=== PATIENT | male | born 1995 | race Caucasian/White ===

== ENCOUNTER 2019-01-25 05:05 | Emergency (ER) | payer OTHER ==
[~2019-01-25] VITALS: Ht 180.3 cm; Wt 77.1 kg
[~2019-01-25 05:05] MED LIST: BACTRIM DS TAB1 EACH PO; BACTROBAN15 GM TP; HYDROCODONE-AP1 EAC6 PO; NOHOMEMEDICATIONS
[2019-01-25 06:05] LABS: URINE BILIRUBIN NEGATIVE (Negative); URINE BLOOD NEGATIVE (Negative); URINE CLARITY CLEAR; URINE COLOR YELLOW; URINE GLUCOSE-RANDOM NEGATIVE (Negative); URINE KETONES NEGATIVE (Negative); URINE LEUKOCYTES-REFLEX 1+ (Negative); URINE NITRITE-REFLEX NEGATIVE (Negative); URINE PROTEIN TRACE (Negative); URINE SPECIFIC GRAVITY 1.015 (1.005-1.030); URINE UROBILINOGEN 0.2 E.U./dl (0.2-1.0)
[2019-01-25 06:14] LABS: BACTERIA-REFLEX 1-9 Few /HPF (None Seen); CASTS None Seen /LPF (None Seen); CRYSTALS None Seen /LPF (None Seen); MUCUS 0-3 Light strn/LPF (None Seen); SQUAMOUS 0-3 Few /LPF (0-3); URINE RBC 0-2 Rare /HPF (0-2)
[2019-01-25 06:31] LABS: AMP/METHAMP POSITIVE (Negative); BARBITURATES Negative (Negative); BENZODIAZEPINES Negative (Negative); COCAINE Negative (Negative); METHADONE Negative (Negative); OPIATES POSITIVE (Negative); PCP Negative (Negative); THC Negative (Negative)
[2019-01-25 06:55] VITALS: BP 119/51
== END 2019-01-25 06:56 | disposition home or self-care (01) ==
LOC: M.ERS 05:05
PROVIDERS: Personal Emergency Response Attendant
DX: N45.1 Epididymitis (principal); F17.210 Nicotine dependence, cigarettes, uncomplicated; Z79.899 Other long term (current) drug therapy

== ENCOUNTER 2019-03-24 04:05 | Emergency (ER) | payer OTHER ==
[~2019-03-24] VITALS: Ht 180.3 cm; Wt 82.4 kg
[2019-03-24 04:33] VITALS: BP 152/97
--- NOTE | 2019-03-24 10:14 | EKG ---
[place] [address] ELECTROCARDIOGRAM REPORT Name: ROSA MESSINA Room: [facility]#: [id number] Admission: 03/24/19 Attend Phys: Discharge: Date of : [birth year] Report #: [id number] THIS REPORT FOR: //name// [facility] ED Test Date: 2019-03-24 Test Time: 04:06:42 Pat Name: ROSA MESSINA Department: Room: Gender: [facility]ia[facility]: : 1995 Requested By: Anastasia Raymond Order Number: [id number] MD: Francisco Linton Measurements Intervals [place] Rate: 139 P: 67 MA: 113 QRS: 66 QRSD: 97 T: -21 QT: 306 QTc: 466 Interpretive Statements Sinus tachycardia Probable left atrial enlargement RSR' in V1 or V2, probably normal variant Nonspecific ST segment depression, likely due to rate Artifact in lead(s) I,II,aVR,aVL,aVF,V4,V5,V6 and baseline wander in lead(s) V6 No previous ECG available for comparison Electronically Signed On 03-24-2019 10:13:57 CDT by Francisco Linton [email or web address] <ELECTRONICALLY SIGNED> By: Francisco Linton MD, FAC 03/24/19 1013 5 Francisco Linton MD, [facility] /EPI
== END 2019-03-24 04:33 | disposition home or self-care (01) ==
LOC: M.ERS 04:05
DX: F41.9 Anxiety disorder, unspecified (principal); F17.210 Nicotine dependence, cigarettes, uncomplicated